=== PATIENT | male | born 1960 | race Caucasian/White ===

== ENCOUNTER 2018-12-29 16:12 | Emergency (ER) | payer BC ==
--- NOTE | 2018-12-29 17:16 | EDM.PDOC ---
ED HPI GENERAL MEDICAL PROBLEM - General Chief Complaint: Chemical Exposure Stated Complaint: SOB AFTER CLEANING THE BATHROOM W/CHEMICALS Time Seen by Provider: 12/29/18 17:01 Source of Information: Reports: Patient History Limitations: Reports: No Limitations - History of Present Illness INITIAL COMMENTS - FREE TEXT/NARRATIVE: Slick is a 58 yo male who presents to the ED via private vehicle, ambulatory, accompanied by with reports of feeling short of breath after a chemical exposure. Patient reports he was cleaning a toilet in his basement around 1100 today. 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 He reports he now feels a little short of breath but it was worse earlier. Also reports feeling congested and has a dry cough; states he was coughing up some clear phlegm before but not now. Denies sore throat or nausea. Headache Pain Score (Numeric/FACES): 3 - Related Data Allergies Allergy/AdvReac Type Severity Reaction Status Date / Time No Known Allergies Allergy Verified 12/29/18 16:22 Home Meds: Home Meds Cholecalciferol (Vitamin D3) [Vitamin D] 3,000 units PO DAILY 05/12/13 [History] Ibuprofen [Motrin] 800 mg PO ASDIRECTED PRN 05/12/13 [History] Multivitamins [Tab-A-Alejandro] 1 tab PO DAILY 05/12/13 [History] Naproxen Sodium [Aleve] 220 mg PO ASDIRECTED PRN 05/12/13 [History] Rosuvastatin Calcium [Crestor] 20 mg PO DAILY 05/12/13 [History] Vitamin B Complex Vit C No.4 [Super B Complex] 150 mg PO DAILY 05/12/13 [History ] amLODIPine Besylate [Amlodipine Besylate] 5 mg PO DAILY 05/12/13 [History] hydroCHLOROthiazide [Hydrochlorothiazide] 12.5 mg PO DAILY 05/12/13 [History] oxyCODONE [Oxycodone HCl] 10 mg PO ASDIRECTED PRN 05/12/13 [History] traMADol [Ultram] 50 mg PO Q4H PRN 05/12/13 [History] Past Medical History Cardiovascular History: Reports: High Cholesterol, Hypertension Gastrointestinal History: Reports: Bowel Obstruction Musculoskeletal History: Reports: Back Pain, Chronic Psychiatric History: Reports: Depression - Past Surgical History Cardiovascular Surgical History: Reports: None GI Surgical History: Reports: Appendectomy, Hernia, Abdominal, Other (See Below) Other GI Surgeries/Procedures: colon resection Musculoskeletal Surgical History: Reports: Other (See Below) Other Musculoskeletal Surgeries/Procedures:: neck surgery, back surgery Social & Family History - Tobacco Use Smoking Status *Q: Never Smoker ED ROS GENERAL - Review of Systems Review Of Systems: See Below Constitutional: Denies: Fever, Chills, Decreased Appetite HEENT: Reports: Rhinitis. Denies: Vision Change Respiratory: Reports: Shortness of Breath, Cough, Sputum (clear). Denies: Wheezing, Hemoptysis Cardiovascular: Reports: No Symptoms. Denies: Chest Pain GI/Abdominal: Reports: No Symptoms ED EXAM, BURN/SMOKE INHALATION - Physical Exam Exam: See Below Exam Limited By: No Limitations General Appearance: Alert, WD/WN, No Apparent Distress Eye Exam: Bilateral Eye: EOMI, Normal Inspection Ears (Abbreviated): Normal External Exam, Normal Canal, Hearing Grossly Normal, Normal TMs Mouth/Throat: No Symptoms Reported. No: Bleeding, Lip Swelling, Oral Sanchez, Oral Inflammation, Pharyngeal Erythema, Throat Pain, Throat Swelling Head: No Symptoms Neck: No Symptoms Respiratory: No Respiratory Distress, Lungs Clear, Normal Breath Sounds, No Accessory Muscle Use Cardiovascular: Normal Peripheral Pulses, Regular Rate, Rhythm, No Murmur Extremities: Normal Inspection Neurological: Alert, Oriented, No Motor/Sensory Deficits Psychiatric: Normal Affect, Normal Mood Skin Exam: Warm, Dry, Intact, Normal Color, No Rash Course - Vital Signs Last Recorded V/S: Last Vital Signs Temp 96.1 F 12/29/18 16:19 Pulse 71 12/29/18 16:19 Resp 20 12/29/18 16:19 BP 114/79 12/29/18 16:19 Pulse Ox 99 12/29/18 16:19 Departure - Departure Time of Disposition: 17:14 Disposition: Home, Self-Care 01 Clinical Impression: Exposure to chemical irritant - Discharge Information Additional Instructions: 1) Ventilate area where exposure happened 2) Drink plenty of water 3) May return to normal daily activities 4) If shortness of breath or any further concerns, recommend returning to ED. - Problem List & Annotations (1) Exposure to chemical irritant SNOMED Code(s): 228899461 Code(s): Z77.098 - CONTACT W AND EXPSR TO OTH HAZARD, CHIEFLY NONMED, CHEMICALS Status: Acute - Assessment/Plan Plan: Exam grossly benign. No concerns noted. Will discharge home at this time. Poison control contacted. Likely will only cause irritation.
== END 2018-12-29 17:20 | disposition home or self-care (01) ==
LOC: CC.ED 16:12
DX: Z77.098 Contact with and (suspected) exposure to other hazardous, chiefly nonmedicinal, chemicals (principal); I10 Essential (primary) hypertension; E78.00 Pure hypercholesterolemia, unspecified; F32.9 Major depressive disorder, single episode, unspecified; Z79.899 Other long term (current) drug therapy
CPT/HCPCS: 99284